=== PATIENT | male | born 1970 | race Caucasian/White ===

== ENCOUNTER → 2021-11-29 08:57 | Outpatient (REF) | payer OTHER, SELFPAY ==
--- NOTE | 2021-11-29 09:10 | CA_ITS ---
Transthoracic Echocardiogram Patient (Last, First, Middle): Mainor Tillman M Gender: Male Date of : 1970 Age: 51 Procedure Date: 11/29/2021 Procedure Type: Transthoracic Echocardiogram Location: OP Height: 177.8 cm Weight: 97.52 kg BSA: 2.15 m2 Heart Rate: bpm BP: 198 / 118 mmHg [place]: SETH Referring MD: Kimani Noel [facility]- Weatherization Crew Leader: Wilber Duran MD Symptoms: M79.89 - Other specified soft tissue disorders Study Quality: Fair ECG Rhythm: Sinus Conclusions: - 1. Mildly dilated left ventricle with [id number] LV systolic dysfunction with LVEF of 40-45% with pseudonormal filling pattern 2. Moderate aortic stenosis and [id number] aortic regurgitation, bicuspid aortic valve cannot be ruled out 3. Moderately elevated right ventricular systolic pressure with elevated right atrial pressures 4. Moderately dilated ascending aorta 5. No gross pericardial effusion Findings Left Ventricle Mildly increased left ventricular cavity size. There is mildly increased left ventricular wall thickness. The left ventricular systolic function is mild to moderately decreased. The visually estimated ejection fraction is between 40-45%. Spectral Doppler is indicative of a pseudonormal filling pattern. Right Ventricle Moderately increased right ventricular cavity size. There is normal right ventricular systolic function. Atria The left atrium is likely dilated. There is no evidence of interatrial shunt. The right atrium is likely dilated. Aortic Valve There is moderate calcification of the aortic valve. There is moderate aortic valve stenosis. The peak aortic gradient is 34 mmHg.The mean gradient is 21 mmHg. The aortic valve area is 1.38 cm2. There is mild to moderate aortic valve regurgitation. Mitral Valve There is mild anterior and posterior mitral leaflet thickening. There is trace mitral valve regurgitation. There is no mitral valve stenosis. Pulmonic Valve The pulmonic valve was not well visualized. Tricuspid Valve There is mild tricuspid valve regurgitation. Moderately elevated right atrial pressure. Moderate pulmonary hypertension is present. Great Vessels The pulmonary artery was not well visualized. There is moderate dilatation of the ascending aorta measuring 4.40 cm. Venous The inferior vena cava is mildly dilated and does not collapse with inspiration. Pericardium/Pleural There is no evidence of pericardial effusion. Prior Study Comparison No prior study available for comparison. Measurements 2D Linear Measurements IVSd: 1.12 0.6-0.9/0.6-1.0 cm LVIDd: 5.76 3.9-5.3/4.2-5.9 cm LVIDd Index: 2.68 2.4-3.2/2.2-3.1 cm/m2 LVIDs: 4.75 2.0-3.6 cm LVPWd: 1.21 0.7-1.1 cm LA Diam: 4.40 2.7-3.8/3.0-4.0 cm LAIDs Index: 2.05 1.5-2.3 cm/m2 LV Mass: 351.91 67-162/88-224 g LV Mass Index: 163.68 43-95/49-115 g/m2 LVOT Diam: 2.00 3.0+(-)1.3 cm 2D Systolic Function EF 4C: 44.00 >55% EF 2C: 45.60 >55% EF BiP: 44.00 >55% Mitral Valve MV Pk E: 1.07 MV PK A: 0.72 MV Decel Time: 151.00 E/A: 1.50 E'Lateral: 5.33 E'Medial: 5.44 E/E' Med: 19.70 E/E' Lat: 20.10 PHT: 44.00 MVA PHT: 5.00 Decel [place]: 7.07 Aortic Valve AoV Pk Eric: 2.91 AoV Mn Eric: 2.17 AoV VTI: 0.53 AoV Pk Grad: 34.00 Aov Mn Grad: 21.00 ANURADHA Cont.VTI: 1.38 LVOT LVOT Pk Eric: 1.33 LVOT Mn Eric: 0.89 LVOT VTI: 0.23 LVOT Pk Grad: 7.00 LVOT Mn Grad: 4.00 LVOT Diam: 2.00 LVOT Area: 3.14 Diastolic Function MV Pk E: 1.07 MV Pk A: 0.72 E/A: 1.50 E'Medial: 5.44 E/E' Med: 19.70 E' Laterial: 5.33 E/E' Lat: 20.10 Right Ventricle TAPSE (mm): 20.90 TVS' Eric: 12.30 Tricuspid Valve TR Pk Eric: 3.24 TR Pk Grad: 42.00 RA Press: 8.00 RVSP: 50.00 Great Vessels Aorta Sinus of Valsalva: 3.38 2.0-3.[address] [place]: 2.99 1.7-3.4 cm Ao Asc: 4.40 2.1-3.4 cm Ao Arch: 3.00 Updated in Other Vendor System with Status of Final Wilber Duran MD electronically signed on 11/29/2021 5:05:04 PM with status of Final
== END ==
LOC: HO.CARD 08:57
PROVIDERS: PCP Nurse Practitioner Family; Visit Provider Nurse Practitioner Family
DX: R01.1 Cardiac murmur, unspecified (principal); M79.89 Other specified soft tissue disorders
CPT/HCPCS: 93306

== ENCOUNTER 2021-12-01 08:10 | Outpatient (REF) | payer OTHER, SELFPAY ==
[2021-12-01 11:21] LABS: MANUAL DIFF FLAG NO
[2021-12-01 11:41] LABS: Estimated Average Glucose 171 mg/dL; Hemoglobin A1c % 7.6 %
[2021-12-01 11:55] LABS: Alanine Aminotransferase 39 U/L (0-40); Albumin Level 4.2 g/dL (3.5-5.0); Alkaline Phosphatase 94 U/L (39-117); Anion Gap 12 (12-20); Aspartate Amino Transferase 28 U/L (5-37); Bilirubin Total 1.6 mg/dL (0.0-1.0); Blood Urea Nitrogen 18 mg/dL (9-16); Calcium 9.5 mg/dL (8.4-10.2); Carbon Dioxide 24 mmol/L (22-29); Chloride 106 mmol/L (96-108); Cholesterol 127 mg/dL; Estimated Glomerular Filt Rate > 60; Glucose Fasting 148 mg/dL (60-99); HDL Cholesterol 40 mg/dL; LDL Cholesterol Calculated 74 mg/dl; Potassium 4.4 mmol/L (3.3-5.1); Sodium 138 mmol/L (135-145); Total Protein 6.7 g/dL (6.5-8.0); Triglycerides 67 mg/dL
[2021-12-01 12:02] LABS: Basophils Percent Auto 0.6 % (0-2); Eosinophils Absolute Auto 0.1 X10*3/uL (0.0-0.4); Eosinophils Percent Auto 0.8 % (0-4); Hematocrit 52.6 % (42.0-52.0); Hemoglobin 17.6 g/dl (14.0-18.0); Imm Gran Abs Auto 0.02 X10*3/uL (0.00-0.03); Imm Gran Pct Auto 0.3 % (0.0-0.4); Lymphocytes Absolute Auto 1.8 X10*3/uL (1.2-4.9); Lymphocytes Percent Auto 27.2 % (20-40); Mean Corpuscular HGB Conc 33.5 g/dl (31.0-36.0); Mean Corpuscular Volume 86.7 fL (80.0-98.0); Mean Platelet Volume 11.3 fL (9.4-12.4); Monocytes Absolute Auto 0.5 X10*3/uL (0.1-1.2); Monocytes Percent Auto 7.8 % (2-11); Neutrophils Absolute Auto 4.1 x10*3/uL (2.0-8.3); Neutrophils Percent Auto 63.3 % (45-73); Platelet Count 160 X10*3/uL (160-400); Red Blood Count 6.07 X10*6/uL (4.60-5.80); Red Cell Distribution Width 13.2 % (11.0-16.0); White Blood Count 6.5 X10*3/uL (4.8-10.8)
[2021-12-01 12:17] LABS: TSH reflex Free T4 1.51 uIU/mL (0.32-4.0)
== END 2021-12-01 08:11 | disposition home or self-care (01) ==
LOC: HO.HMGCLDS 08:10
PROVIDERS: PCP Nurse Practitioner Family; Visit Provider Nurse Practitioner Family
DX: I11.0 Hypertensive heart disease with heart failure (principal); I50.21 Acute systolic (congestive) heart failure; I35.0 Nonrheumatic aortic (valve) stenosis; E11.9 Type 2 diabetes mellitus without complications; R93.1 Abnormal findings on diagnostic imaging of heart and coronary circulation; R06.02 Shortness of breath
CPT/HCPCS: 36415; 80053; 80061; 83036; 84443; 85025; 99202

== ENCOUNTER 2021-12-01 15:17 | Outpatient (REF) | payer OTHER, SELFPAY ==
--- NOTE | ~2021-12-01 | XR_ITS ---
EXAMINATION: XR CHEST CLINICAL INFORMATION: Shortness of breath COMPARISON: None TECHNIQUE: 2 views of the chest were obtained. FINDINGS: Normal symmetric lung volumes. No parenchymal consolidation. No pleural effusion. No pneumothorax. Mild cardiomegaly. Pulmonary venous congestion without overt edema. Mild bronchial wall thickening without bronchiectasis. No acute osseous abnormalities. XR/XR chest 2V IMPRESSION: Cardiomegaly and pulmonary venous congestion without overt edema. Diffuse mild bronchial wall thickening as can be seen with bronchitis and/or asthma.
[2021-12-01 16:00] LABS: B Type Natriuretic Peptide 609 pg/mL (<100)
== END 2021-12-01 15:18 | disposition home or self-care (01) ==
LOC: HO.LAB 15:17
PROVIDERS: Absent Provider Nurse Practitioner Family; PCP Nurse Practitioner Family; Visit Provider Internal Medicine Cardiovascular Disease
DX: I50.21 Acute systolic (congestive) heart failure (principal); M79.89 Other specified soft tissue disorders; R06.02 Shortness of breath
CPT/HCPCS: 36415; 71046; 83880

== ENCOUNTER 2021-12-07 06:06 | Outpatient (REF) | payer OTHER, SELFPAY ==
[2021-12-07 07:46] LABS: Anion Gap 14 (12-20); Blood Urea Nitrogen 18 mg/dL (9-16); Calcium 9.9 mg/dL (8.4-10.2); Carbon Dioxide 28 mmol/L (22-29); Chloride 103 mmol/L (96-108); Estimated Glomerular Filt Rate > 60; Glucose Random 139 mg/dL (60-115); Potassium 4.5 mmol/L (3.3-5.1); Sodium 140 mmol/L (135-145)
[2021-12-07 07:47] LABS: B Type Natriuretic Peptide 133 pg/mL (<100)
== END 2021-12-07 06:07 | disposition home or self-care (01) ==
LOC: HO.LAB 06:06
PROVIDERS: PCP Nurse Practitioner Family; Visit Provider Internal Medicine Cardiovascular Disease
DX: I50.21 Acute systolic (congestive) heart failure (principal)
CPT/HCPCS: 36415; 80048; 83880

== ENCOUNTER → 2021-12-14 14:15 | Outpatient (BNVA) | payer OTHER, SELFPAY | PROVIDERS: PCP Nurse Practitioner Family; Referring Provider Nurse Practitioner Family; Visit Provider Internal Medicine Cardiovascular Disease | DX: I11.0 Hypertensive heart disease with heart failure (principal); I50.20 Unspecified systolic (congestive) heart failure | CPT/HCPCS: 99212 ==

== ENCOUNTER 2021-12-15 10:46 | Outpatient (REF) | payer OTHER, SELFPAY ==
--- NOTE | ~2021-12-15 | US_ITS ---
EXAMINATION: US VENOUS ULTRASOUND WITH DOPPLER LOWER EXTREMITY, RIGHT CLINICAL INFORMATION: Right leg swelling COMPARISON: None TECHNIQUE: Ultrasound of the deep veins is performed from the hip to the calf with compression sonography and color and pulse Doppler assessment. Spectral analysis with color-flow imaging is performed. FINDINGS: There is normal venous compression and respiratory variation and augmented flow. The visualized common femoral vein, superficial femoral vein, profunda femoral vein, popliteal vein, and the trifurcation region shows no evidence of deep venous thrombosis. There is no significant popliteal fossa cyst. Prominent right groin lymph node measuring 3.2 x 0.5 x 2.6 cm. If the patient's symptoms persist, followup ultrasound in 5 days 7 days might be of value to exclude proximal propagation from a non-visualized calf vein. US/US venous duplex LE RT IMPRESSION: 1. No DVT demonstrated in the right lower extremity. 2. Prominent right groin lymph node measuring 3.2 x 0.5 x 2.6 cm.
== END 2021-12-15 10:47 | disposition home or self-care (01) ==
LOC: HO.HMGCX 10:46
PROVIDERS: PCP Nurse Practitioner Family; Visit Provider Nurse Practitioner Family
DX: M79.89 Other specified soft tissue disorders (principal)
CPT/HCPCS: 93971

== ENCOUNTER → 2022-01-10 14:55 | Outpatient (BNVA) | payer OTHER, SELFPAY | PROVIDERS: PCP Nurse Practitioner Family; Visit Provider Nurse Practitioner Family | DX: R06.83 Snoring (principal); R53.83 Other fatigue | CPT/HCPCS: 99202 ==

== ENCOUNTER → 2022-01-11 07:42 | Outpatient (REF) | payer OTHER, SELFPAY ==
--- NOTE | ~2022-01-11 | NM_ITS ---
Myocardial perfusion study Indication: Congestive heart failure to evaluate for myocardial ischemia Technique: The patient was brought in for a Lexiscan perfusion study on 01/11/2022. Patient performed low-level exercise and was injected 0.4 mg of Lexiscan intravenously. Within a minute of injection, 25 mCi of sestamibi was given intravenously. Images were obtained using the SPECT gamma camera interlaced with the gating device. Images were obtained in supine position. Resting perfusion study was performed on 01/12/2022. Patient was administered 25 mCi of sestamibi intravenously at rest. Images were then obtained in supine position. Images obtained with and without CT attenuation. Total DLP 96 mGy-cm Images were processed with the software and compared side to side in short axis, horizontal long axis and vertical long axis views. Findings: The stress perfusion study showed non attenuated images show mildly reduced uptake in the basal and mid inferior wall of the LV myocardium. Remainder of the LV myocardium normally perfused. Attenuation corrected images show minimally to mildly reduced uptake in a very small area of apex of the LV myocardium.. The gated study shows reduced LV systolic function with calculated LVEF of 45%. LV cavity is mildly dilated size. The gated study shows diffusely reduced wall thickening and contraction of segments. Resting study shows no change in perfusion pattern compared to stress perfusion study. Gating at rest reveals diffusely reduced wall motion with ejection fraction at 44%. The findings are consistent with no reversible defect suggestive of ischemia. NM/NM jessica perf SPECT rest & str Impression: 1. Myocardial perfusion imaging study shows likely normal myocardial perfusion 2. Gated LVEF is 45% 3. Transient ischemic dilatation not present but LV cavity is dilated EKG is nondiagnostic for ischemia
--- NOTE | 2022-01-11 07:46 | CA_ITS ---
Acquisition Time: 2022-01-11 08:14:10 Total Exercise Time: 00:02:00 Test Indications: HEART FAILURE,CARDIOMYAPATHY Medications: SEE H Protocol: LEXISCAN Max HR: 104 BPM 62% of Pred: 167 BPM Max BP: 144/078 mmHG Max Work Load: 1.6 METS Pharmacological stress test with Lexiscan injection, while walking slow on treadmill, without anginal symptoms, without arrythmia, with normotensive response to injection, with nondiagnostic EKG for ischemia. Nuclear images pending Test reviewed with Dr Vincent. Referred By: Wilber Duran Overread By: YOSEPH LE
== END ==
LOC: HO.CARD 07:42
PROVIDERS: PCP Nurse Practitioner Family; Visit Provider Internal Medicine Cardiovascular Disease
DX: I50.20 Unspecified systolic (congestive) heart failure (principal)
CPT/HCPCS: 78452; 93017; A9500; J0280; J2785

== ENCOUNTER 2022-01-26 15:11 | Outpatient (REF) | payer OTHER, SELFPAY ==
[2022-01-26 16:38] LABS: Anion Gap 15 (12-20); Blood Urea Nitrogen 17 mg/dL (9-16); Calcium 9.7 mg/dL (8.4-10.2); Carbon Dioxide 24 mmol/L (22-29); Chloride 99 mmol/L (96-108); Estimated Glomerular Filt Rate > 60; Glucose Random 148 mg/dL (60-115); Potassium 4.4 mmol/L (3.3-5.1); Sodium 134 mmol/L (135-145)
[2022-01-26 16:46] LABS: B Type Natriuretic Peptide 11 pg/mL (<100)
== END 2022-01-26 15:12 | disposition home or self-care (01) ==
LOC: HO.LAB 15:11
PROVIDERS: PCP Nurse Practitioner Family; Referring Provider Nurse Practitioner Family; Visit Provider Internal Medicine Cardiovascular Disease
DX: I11.0 Hypertensive heart disease with heart failure (principal); I50.20 Unspecified systolic (congestive) heart failure; I71.2 Thoracic aortic aneurysm, without rupture; I35.0 Nonrheumatic aortic (valve) stenosis
CPT/HCPCS: 36415; 80048; 83880; 99212

== ENCOUNTER 2022-02-10 15:21 | Outpatient (REF) | payer OTHER, SELFPAY ==
--- NOTE | ~2022-02-10 | US_ITS ---
EXAMINATION: US SOFT TISSUE, NONVASCULAR CLINICAL INFORMATION: Prominent right inguinal lymph node noted on otherwise unremarkable prior right leg venous ultrasound. COMPARISON: Right lower extremity venous ultrasound with Doppler 12/15/2021. TECHNIQUE: Ultrasound bilateral inguinal region is performed using grayscale imaging and color Doppler. FINDINGS: There are 3 elongated inguinal nodes on each side. The short axis dimensions are only 0.7 cm and the bilateral nodes show normal lily ultrasound architecture with abundant fatty hilus and normal lily color flow pattern. No cystic, round, or focally thickened nodes. US/US pelvic limited IMPRESSION: -Bilateral inguinal nodes with normal lily architecture and color flow pattern. -No cystic, round, are focally thickened nodes.
== END 2022-02-10 15:22 | disposition home or self-care (01) ==
LOC: HO.US 15:21
PROVIDERS: Visit Provider Nurse Practitioner Family
DX: R59.0 Localized enlarged lymph nodes (principal)
CPT/HCPCS: 76857

== ENCOUNTER → 2022-02-20 14:40 | Outpatient (REF) | payer OTHER, SELFPAY | LOC: HO.SL 14:40 | PROVIDERS: PCP Nurse Practitioner Family; Visit Provider Nurse Practitioner Family | DX: G47.33 Obstructive sleep apnea (adult) (pediatric) (principal); R53.83 Other fatigue; R06.83 Snoring | CPT/HCPCS: 95806 ==